=== PATIENT | female | born 1955 | race Two or more races ===

== ENCOUNTER 2023-09-15 09:42 | Emergency (ER) | payer MEDICARE, OTHER, SELFPAY ==
[2023-09-15 09:46] VITALS: BP 120/79
[2023-09-15] MEDS: NSS 500 IV (10:35)
[2023-09-15] MEDS: ZOFRAN 4 MG IV (10:35)
[2023-09-15] MEDS: TORADOL 15 MG IV (10:36)
--- NOTE | 2023-09-15 10:37 | ED.GENMED ---
History of Present Illness
General
Chief Complaint: Flank Pain
Source: patient
Exam Limitations: none
Time Seen by Provider: 09/15/23 09:50
Nursing documentation reviewed up to this point in time: agreed with
Travel History
Have you had any contact with someone who has COVID-19?: No
Do you have any symptoms of coronavirus? Fever > 100 degrees, chills, cough, shortness of breath, sore throat, loss of taste or smell, muscle aches, or headache?: No
History of Present Illness
History of Present Illness:
67-year-old female with past medical history of kidney stones presenting to the emergency department today with concerns of left-sided flank discomfort over the past 6 days. Does have a history of stones has follow-up with her urologist has not had
imaging yet. Has been taking Flomax and Zofran but has had ongoing nausea. Worsening discomfort today.
Review of Systems
Review of Systems
Allergies reviewed?: Yes
All Other Systems: ROS reviewed and negative except as documented in HPI and ROS
Phy Exam
Physical Exam
Physical Exam:
GENERAL: Alert , in no apparent distress
EYE: pupils equal and reactive
NECK: Supple, no significant adenopathy.
ENT: o/p clr, mmm.
CARDIAC: Regular rate and rhythm .
LUNGS: Clear breath sounds bilaterally, no acute respiratory distress, no wheezes/rales/rhonchi
ABDOMEN: Mild left-sided CVA tenderness soft, without focal tenderness, no r/g, no cvat
NEUROLOGICAL: Alert and oriented, no focal neuro deficits
SKIN: Warm and dry, skin intact.
MUSCULOSKELETAL: No edema, well perfused.
PSYCH: Normal and appropriate interaction.
Course
Orders/Labs/Results
Orders:
Orders
09/15/23 09:58
CT Abd/pel Without Iv Or Oral Urgent
Comment:
Reason For Exam: Left flank pain
0.9% Sodium Chloride 500 ml [Nss] 500 ml IV BOLUS
Ketorolac [Toradol] 15 mg IV NOW STA
Ondansetron Injectable [Zofran] 4 mg IV NOW STA
09/15/23 10:39
Complete Blood Count/With Diff Urgent
Comprehensive Metabolic Panel Urgent
Urinalysis Reflex To Culture Urgent
Date Specimen was Collected: 09/15/23
Time Specimen was Collected: 10:31
Urine Microscopic Reflex Cult Urgent
Abnormal Lab Results
09/15/23
10:39
RBC 4.12 L 10^6/uL
(4.20-5.40)
Hgb 11.8 L g/dL
(12.0-16.0)
Hct 34.7 L %
(37.0-47.0)
Absolute Lymphs (auto) 1.1 L 10^3/uL
(1.2-3.4)
Neutrophils % 75.8 H %
(42.2-75.2)
Lymphocytes % 15.1 L %
(20.5-51.1)
Sodium 134 L mmol/L
(135-145)
Chloride 97 L mmol/L
(98-107)
BUN 24 H mg/dl
(7-17)
Creatinine 1.7 H mg/dL
(0.6-1.0)
Glucose 103 H mg/dl
(70-99)
Urine Ketones Trace A
(Negative)
Ur Occult Blood Reflex 4+ A
(Negative)
09/15/23 10:39
09/15/23 10:39
Vital Signs
Initial and Last Documented VS:
Initial Vital Signs
Temp Pulse Resp BP Pulse Ox
98.3 F 110 18 120/79 100
09/15/23 09:46 09/15/23 09:46 09/15/23 09:46 09/15/23 09:46 09/15/23 09:46
Last Documented Vital Signs
Temp Pulse Resp BP Pulse Ox
98.3 F 110 18 120/79 100
09/15/23 09:46 09/15/23 09:46 09/15/23 09:46 09/15/23 09:46 09/15/23 09:46
MDM/Problems Addressed
MDM/Problems Addressed:
CT scan showing a distal 5 mm stone. 67-year-old female presenting to the emergency department today with concerns of left flank pain in the over the past 6 days worsening over the past 24 hours. Upon arrival here mildly tachycardic but otherwise
vital signs are normal. Plan for CT scan and labs for further assessment. CT scan showing a distal 5 mm stone with mild hydro-. Patient was also found to have an elevated creatinine level of 1.7 and BUN of 24. No signs of infection on
urinalysis. Case discussed with urology they recommended outpatient care and repeated BMP in 2 days. Otherwise patient feeling well here stable for discharge.
*Critical Care Note
Total Time (30-74mins, 75-104mins- exclusive of procedures): Not Applicable
ED Attending Note
-
Portions of this chart may have been created with voice recognition software.� Occasional wrong word or��sound alike� substitutions may have occurred due to the inherent limitations of voice recognition software.
Discharge Plan
Departure
Patient Disposition: Home (Routine Discharge)
Date of Disposition: 09/15/23
Time of Disposition: 12:28
Patient with high blood pressure during this ER visit?: No
Condition: Good
Covid-19: Not Applicable
Discharge Problem:
Left ureteral calculus, Elevated serum creatinine
Instructions: Kidney Stones (DC), How to Strain Your Urine
Prescriptions:
New
ibuprofen 600 mg tablet
600 mg PO Q6H PRN (Reason: Pain) Qty: 20 0RF
Referrals:
Hank Cordero MD [Active] - Follow up in 5-7 days
Evy Herzog MD [Family Provider] -
Activity Restrictions/Additional Instructions:
To the emergency department today and were found to have a 5 mm distal stone on the left side. He also had an elevated creatinine level he should have this repeated in 2 days. Please take the prescribed medications to help with symptoms and
hopefully the stone will pass. Please follow closely with urology within a few days. Return to the emergency department for any worsening, new or concerning symptoms.
Interventions
Interventions:
ED- Fall Risk Assessment Last Done: 09/15/23 11:43
*ED COVID-19 Vaccine History Last Done: 09/15/23 09:46
DW-Saydtj-Vmifsficse Assessment Last Done: 09/15/23 11:42
ED-Female Genitourinary Assessment Last Done: 09/15/23 11:42
Discharge Date and Time
Print Language: UPPER SORBIAN
[2023-09-15 10:43] VITALS: BMI 26.9
[2023-09-15 10:47] LABS: Urine Albumin Negative (Neg - Trace); Urine Bilirubin Negative (Negative); Urine Character Clear (Clear); Urine Color Straw; Urine Glucose Negative (Negative); Urine Ketone Trace (Negative); Urine Leukocyte Negative (Negative); Urine Nitrite Negative (Negative); Urine Occult Blood 4+ (Negative); Urine Specific Gravity 1.005 (<1.030); Urine Urobilinogen Negative (Neg - 1+)
[2023-09-15 10:51] LABS: % Basophils 0.5 % (0-2); % Eosinophils 0.9 % (0-6); % Immature Granulocytes 0.3 % (0-0.5); % Lymphocytes 15.1 % (20.5-51.1); % Monocytes 7.4 % (1.7-9.3); % Neutrophils 75.8 % (42.2-75.2); Absolute Eosinophils 0.1 10^3/uL (0-0.7); Absolute Lymphocytes 1.1 10^3/uL (1.2-3.4); Absolute Monocytes 0.6 10^3/uL (0.1-0.6); Absolute Neutrophils 5.6 10^3/uL (1.4-6.5); Hematocrit 34.7 % (37.0-47.0); Hemoglobin 11.8 g/dL (12.0-16.0); Mean Corpuscular Hgb 28.6 pg (27.0-31.0); Mean Corpuscular Volume 84.2 fL (81.0-99.0); Mean Platelet Volume 9.6 fL (7.4-10.4); Nucleated Red Blood Cells % 0 %; Platelet Count 228 10^3/uL (130-400); Red Blood Cell Count 4.12 10^6/uL (4.20-5.40); Red Cell Dist. Width 11.9 % (11.5-14.5); White Blood Cell Count 7.4 10^3/uL (4.8-10.8)
[2023-09-15 11:01] LABS: ALT (SGPT) 17 U/L (0-35); AST (SGOT) 33 U/L (14-36); Alkaline Phosphatase 98 U/L (38-126); Blood Urea Nitrogen 24 mg/dl (7-17); Calcium 9.5 mg/dl (8.4-10.2); Carbon Dioxide 30 mmol/L (22-30); Chloride 97 mmol/L (98-107); Estimated Creatinine Clearance 28 ml/min; Glucose 103 mg/dl (70-99); Potassium 3.7 mmol/L (3.5-5.1); Sodium 134 mmol/L (135-145); Total Protein 7.2 g/dl (6.3-8.2); eGFR 32.66
[2023-09-15 11:02] LABS: Urine Red Blood Cell 0-2 /HPF (0-2); Urine Squamous Cell 0-2 /LPF (Few); Urine White Cell 0-2 /HPF (0-5)
== END 2023-09-15 13:20 | disposition home or self-care (01) ==
LOC: EMR 09:42
PROVIDERS: Physician Assistant; EMERGENCY PHYSICIAN Emergency Medicine; FAMILY PHYSICIAN Internal Medicine
DX: N13.2 Hydronephrosis with renal and ureteral calculous obstruction (principal); R79.89 Other specified abnormal findings of blood chemistry; Z87.442 Personal history of urinary calculi
CPT/HCPCS: 99284; 96374; 96375; 96361; 74176; 80053; 81003; 81015; 85025

== ENCOUNTER → 2023-09-17 06:24 | Outpatient (REF) | payer MEDICARE, OTHER, SELFPAY ==
[2023-09-17 08:49] LABS: Blood Urea Nitrogen 17 mg/dl (7-17); Calcium 9.3 mg/dl (8.4-10.2); Carbon Dioxide 31 mmol/L (22-30); Chloride 103 mmol/L (98-107); Glucose 92 mg/dl (70-99); Sodium 137 mmol/L (135-145); eGFR 55.07
== END ==
LOC: REG 06:24
PROVIDERS: ATTENDING PHYSICIAN Specialist; FAMILY PHYSICIAN Internal Medicine
DX: R79.89 Other specified abnormal findings of blood chemistry (principal); N20.0 Calculus of kidney
CPT/HCPCS: 36415; 80048

== ENCOUNTER → 2024-01-28 09:20 | Outpatient (REF) | payer MEDICARE, OTHER, SELFPAY | LOC: RAD 09:20 | PROVIDERS: ATTENDING PHYSICIAN Specialist; FAMILY PHYSICIAN Internal Medicine | DX: N20.0 Calculus of kidney (principal) | CPT/HCPCS: 74018 ==

== ENCOUNTER → 2024-08-09 15:02 | Outpatient (REF) | payer MEDICARE, OTHER, SELFPAY | LOC: RAD 15:02 | PROVIDERS: ATTENDING PHYSICIAN Specialist; FAMILY PHYSICIAN Internal Medicine | DX: N20.0 Calculus of kidney (principal) | CPT/HCPCS: 74018 ==

== ENCOUNTER 2025-01-03 08:20 | Emergency (ER) | payer MEDICARE, OTHER, SELFPAY ==
[2025-01-03 08:34] VITALS: BP 142/80
[2025-01-03 09:36] LABS: Urine Character Clear (Clear)
[2025-01-03 09:38] LABS: Hematocrit 38.5 % (37.0-47.0); Hemoglobin 12.7 g/dL (12.0-16.0); Mean Corp Hgb Conc. 33.0 g/dL (33.0-37.0); Mean Corpuscular Volume 85.7 fL (81.0-99.0); Nucleated Red Blood Cells % 0 %; Platelet Count 186 10^3/uL (130-400); Red Cell Dist. Width 12.5 % (11.5-14.5)
[2025-01-03 09:43] LABS: Urine Urothelial Cell 0-2 /LPF (FEW)
[2025-01-03 09:44] LABS: Urine Red Blood Cell 30-40 /HPF (0-2)
[2025-01-03 09:54] LABS: ALT (SGPT) 21 U/L (0-35); AST (SGOT) 26 U/L (14-36); Albumin 4.2 g/dl (3.5-5.0); Alkaline Phosphatase 84 U/L (38-126); Blood Urea Nitrogen 15 mg/dl (7-17); Calcium 9.6 mg/dl (8.4-10.2); Carbon Dioxide 30 mmol/L (22-30); Chloride 106 mmol/L (98-107); Glucose 100 mg/dl (70-99); Potassium 4.6 mmol/L (3.5-5.1); Sodium 139 mmol/L (135-145); Total Protein 7.1 g/dl (6.3-8.2); eGFR > 60.00
[2025-01-03] MEDS: TORADOL 15 MG IV (10:29)
[2025-01-03 10:33] VITALS: BP 138/57
--- NOTE | 2025-01-03 11:43 | ED.GENMED ---
History of Present Illness
General
Chief Complaint: Abdominal Pain
Source: patient
Time Seen by Provider: 01/03/25 08:49
History of Present Illness
History of Present Illness:
Note:
CHIEF COMPLAINT(S)
Right-sided flank pain
HISTORY OF PRESENT ILLNESS
The patient is a 69-year-old female presenting with right-sided flank pain that started last week. Initially, the pain was experienced in the left flank but has since localized to the right flank. The patient describes the pain as severe enough to
impair movement, noting that it worsens with motion and has been present since she 'got up' this morning. She associates her current pain with previous experiences of musculoskeletal discomfort but is concerned it might be something else.
The patient denies any urinary changes, such as pain or burning during urination, or increased frequency. There are no associated symptoms such as fever, nausea, vomiting, or abdominal pain.
During the physical examination, I confirmed the absence of rashes (such as shingles) on the site of pain, and there is no costovertebral angle tenderness (CVAT). The patient describes tenderness as being felt internally rather than on the skin
surface.
The pain is exacerbated by movement, suggesting a potential musculoskeletal origin, but the possibility of a kidney stone remains under consideration.
PAST MEDICAL AND SURGICAL HISTORY
The patient does not report any history of hypertension, diabetes, hyperlipidemia, or cardiac disease.
MEDICATIONS
The patient reports taking a diuretic daily, commonly referred to as a 'water pill.'
PHYSICAL EXAM
General: Alert, in mild distress due to pain.
Skin: Warm, dry, no rashes noted.
Head: Normocephalic, atraumatic.
Neck: Supple, trachea midline.
Eyes, Ears, Nose, Mouth, and Throat: Oral mucosa moist.
Cardiovascular: Heart sounds regular, no murmurs, normal peripheral perfusion, no edema.
Respiratory: Respirations are non-labored.
Gastrointestinal: Abdomen is nondistended, no tenderness upon palpation, bowel sounds present, and regular.
Back: Normal range of motion with motion-induced pain, suggesting possible musculoskeletal origin. No CVA tenderness
Musculoskeletal: Pain exacerbated by movement, normal strength.
Neurological: Alert and oriented to person, place, time, and situation, no focal neurological deficit observed.
Psychiatric: Cooperative, appropriate mood & affect.
PLAN
- Consider administration of an anti-inflammatory medication to address the pain.
- Evaluate renal function to rule out kidney stones using diagnostic imaging.
- Continuous monitoring to assess symptoms and response to treatment.
DIFFERENTIAL DIAGNOSIS
The Differential Diagnosis includes, in no particular order and is not limited to:
- Musculoskeletal pain
- Kidney stone
- Urinary tract infection
- Pyelonephritis
- Herpes zoster (without rash)
- Osteoarthritis
- Radiculopathy
- Myofascial pain syndrome
- Lumbosacral strain
- Polymyalgia rheumatica
Disposition:
SUMMARY OF ENCOUNTER
The patient is a 69-year-old female who presented to the emergency department with right-sided flank pain. Initial evaluation included a CT scan, which was negative for aortic aneurysm and ureteral calculus, and a urinalysis showing microscopic
hematuria without signs of infection. Her pain exacerbated with movement, suggesting a potential musculoskeletal origin from previous history. A complete blood count (CBC) and comprehensive metabolic panel (CMP) were conducted, both showing normal
results.
ASSESSMENT
The working diagnosis is musculoskeletal pain, with consideration for a possible unseen kidney stone as suggested by microscopic hematuria. Alternatives like urinary tract infection were ruled out due to a lack of evidence of infection.
PLAN
- Consider administration of anti-inflammatory medication for pain relief.
- Recommend follow-up with primary care for further evaluation and management.
- Monitor symptoms and determine if imaging or additional interventions are recommended.
INDEPENDENT REVIEW OF LABS AND INTERPRETATION OF TESTS
- My independent review of CBC is normal with normal hemoglobin levels.
- My independent review of CMP is normal.
- My independent review of urinalysis indicates microscopic hematuria with no evidence of infection.
MEDICATION RECONCILIATION
- Pain management with an anti-inflammatory medication is advised.
MEDICAL DECISION MAKING
-Chronic conditions affecting care include potential musculoskeletal pain and differential diagnosis of kidney stone.
-Data:
Category 1:
- Testing involved CT scan, CBC, CMP, and urinalysis. All labs, including CT, were reviewed.
-Risk:
- Prescription medication was considered for pain management.
- Consideration of Admission/Observation: Escalation of care including admission/observation was considered given the complexity and risk of the patients presenting complaint, exam findings, and/or their underlying comorbidities. However, ultimately
I feel the patient is safe for outpatient management with close follow up. Reasoning: Work-up reassuring, does not reveal any acute life/organ threatening processes, patients symptoms well controlled upon reevaluation, reexamination is reassuring,
vitals are stable, patient agreeable with discharge, reliable for follow-up.
DIAGNOSIS
- Musculoskeletal pain likely due to strain or other soft tissue issues (ICD-10: M79.1)
- Microscopic hematuria potentially indicative of kidney stone (ICD-10: N20.9)
Course
Orders/Labs/Results
Orders:
Orders
01/03/25 09:11
CT Abd/pel Without Iv Or Oral Urgent
Comment:
Reason For Exam: R flank pain
01/03/25 09:26
Complete Blood Count/With Diff Urgent
Comprehensive Metabolic Panel Urgent
01/03/25 09:27
Urinalysis Reflex To Culture Urgent
Date Specimen was Collected: 01/03/25
Time Specimen was Collected: 09:20
Urine Microscopic Reflex Cult Urgent
01/03/25 10:17
Ketorolac [Toradol] 15 mg IV NOW STA
Abnormal Lab Results
01/03/25 01/03/25
09:26 09:27
Absolute Lymphs (auto) 1.0 L 10^3/uL
(1.2-3.4)
Neutrophils % 79.4 H %
(42.2-75.2)
Lymphocytes % 13.6 L %
(20.5-51.1)
Glucose 100 H mg/dl
(70-99)
Ur Occult Blood Reflex 4+ A
(Negative)
Urine RBC 30-40 A /HPF
(0-2)
Urine Bacteria (Reflex) Few A
(Negative)
01/03/25 09:26
01/03/25 09:26
Vital Signs
Initial and Last Documented VS:
Initial Vital Signs
Temp Pulse Resp BP Pulse Ox
98.0 F 84 16 142/80 98
01/03/25 08:34 01/03/25 08:34 01/03/25 08:34 01/03/25 08:34 01/03/25 08:34
Last Documented Vital Signs
Temp Pulse Resp BP Pulse Ox
98.0 F 68 18 138/57 97
01/03/25 08:34 01/03/25 10:33 01/03/25 10:33 01/03/25 10:33 01/03/25 10:33
*Pulse Oximetry
SaO2: 97
Oxygen Mode of Delivery: Room air
Patient hypoxic: no
*Critical Care Note
Total Time (30-74mins, 75-104mins- exclusive of procedures): Not Applicable
ED Attending Note
-
Portions of this chart may have been created with voice recognition software.� Occasional wrong word or��sound alike� substitutions may have occurred due to the inherent limitations of voice recognition software.
Discharge Plan
Departure
Patient Disposition: Home (Routine Discharge)
Date of Disposition: 01/03/25
Time of Disposition: 11:44
Patient with high blood pressure during this ER visit?: No
Discharge Problem:
Acute flank pain
Instructions: Blood in the urine (hematuria) in adults, Flank pain
Prescriptions:
No Action
ibuprofen 600 mg tablet
600 mg PO Q6H PRN (Reason: Pain) Qty: 20 0RF
Referrals:
Evy Herzog MD [Family Provider, Internal Medicine]
Activity Restrictions/Additional Instructions:
Please see your doctor in the next 2 to 3 days for follow-up and reevaluation. Return immediately for worsening pain, vomiting, fevers or any other concerns. If the pain persist, further workup may be necessary.
Interventions
Interventions:
*Risk Screen - Suicide Last Done: 01/03/25 08:34
*Neglect/Abuse Screening Last Done: 01/03/25 08:34
QJ-Fhshdh-Zmhxqdoafi Assessment Last Done: 01/03/25 09:22
Discharge Date and Time
Print Language: SOUTH [place]UD[place]
== END 2025-01-03 11:50 | disposition home or self-care (01) ==
LOC: EMR 08:20
PROVIDERS: EMERGENCY PHYSICIAN Emergency Medicine; FAMILY PHYSICIAN Internal Medicine
DX: R10.9 Unspecified abdominal pain (principal); R31.29 Other microscopic hematuria; Z87.442 Personal history of urinary calculi
CPT/HCPCS: 99284; 96374; 74176; 80053; 81003; 81015; 85025